=== PATIENT | female | born 1960 | race Caucasian/White ===

== ENCOUNTER 2018-09-10 14:51 | Inpatient (IN) | payer BC ==
[~2018-09-10] VITALS: Ht 162.6 cm; Wt 74.5 kg
[2018-09-10] MEDS ORDERED: IV NORMAL SALINE 1,000ML 1,000 ML IV SCH (15:13)
[2018-09-10] MEDS ORDERED: ONDANSETRON PF 4 MG/2 ML VIAL. IV PRN (15:15)
[2018-09-10] MEDS ORDERED: ACETAMINOPHEN 325 MG TABLET PO PRN (15:15)
[2018-09-10] MEDS ORDERED: KETOROLAC 30 MG/ML VIAL. IV PRN (15:15)
--- NOTE | 2018-09-10 15:17 | RAD ---
EXAM: CT HEAD WITHOUT CONTRAST. HISTORY: Facial droop, code stroke. TECHNIQUE: Computed tomography of the head was performed without intravenous contrast. COMPARISON: None. FINDINGS: There is no intracranial hemorrhage. Calix-white differentiation is preserved. The ventricles are normal in size and position. The visualized paranasal sinuses appear clear. The orbits are unremarkable. The temporal bones are unremarkable. The calvarium reveals no suspicious lesions. IMPRESSION: 1. No acute intracranial findings. These findings were called to Rosa by Calixto Mullins on 09/10/2018 at 3:08 PM. *One or more of the following individualized dose reduction techniques were utilized for this examination: 1. Automated exposure control. 2. Adjustment of the mA and/or kV according to patient size. 3. Use of iterative reconstruction technique. Electronically signed by: Kellie Mullins MD (09/10/2018 3:14 PM) [facility]
[2018-09-10 15:37] LABS: BASO # 0.1 x10^3/uL (0.0-0.2); BASO % 1 % (0-3); EOS # 0.1 x10^3/uL (0.0-0.7); EOS % 2 % (0-3); HEMATOCRIT 43.7 % (36.0-47.0); LYMPH % 32 % (24-48); MEAN CORPUSCULAR HEMOGLOBIN 33 pg (25-35); MEAN CORPUSCULAR HGB CONC 34 g/dL (31-37); MEAN CORPUSCULAR VOLUME 95 fL (79-100); MONO # 0.7 x10^3/uL (0.0-1.1); MONO % 11 % (0-9); NEUT # 3.4 x10^3uL (1.8-7.7); NEUT % 54 % (31-73); PLATELET COUNT 294 x10^3/uL (140-400); RED CELL DISTRIBUTION WIDTH 13.7 % (11.5-14.5); WHITE BLOOD COUNT 6.2 x10^3/uL (4.0-11.0)
[2018-09-10 15:50] LABS: ALBUMIN 3.4 g/dL (3.4-5.0); ALBUMIN/GLOBULIN RATIO 0.9 (1.0-1.7); CALCIUM 8.5 mg/dL (8.5-10.1); CREATININE 0.8 mg/dL (0.6-1.0); GFR 74.5; MAGNESIUM 2.1 mg/dL (1.8-2.4); POTASSIUM 3.4 mmol/L (3.5-5.1); TOTAL BILIRUBIN 0.3 mg/dL (0.2-1.0); TOTAL PROTEIN 7.2 g/dL (6.4-8.2)
[2018-09-10 16:15] VITALS: BP 133/67
--- NOTE | 2018-09-10 16:21 | NUR ---
Patient admitted direct to ICU 6. Per Dr Heredia office patient is a code stoke. Patient registered then taken directly to CT scan for code stroke. Patient then brought to ICU 6. Radiology did call with negative CT result. Pt is able to verbalize understanding of orientation to unit and poc. Pt states she was watching her son clean the pool on thu and felt weak and her legs gave out. She did fall, no LOC and did not hit head. She has felt weak since, so went to the doctor today. NO trouble swallowing, can move all extremities at this time. Dawood POTTS
[2018-09-10] MEDS ORDERED: IPRA3AMP29 NEB (16:24)
[2018-09-10] MEDS ORDERED: ALPR0.25 PO (16:24)
[2018-09-10] MEDS ORDERED: IBUP800T19 PO (16:25)
[2018-09-10] MEDS ORDERED: [UNRECOGNIZED DRUG - OTHER] IV ONE (16:42)
[2018-09-10] MEDS ORDERED: POTASSIUM CL IV ONE (16:42)
[2018-09-10] MEDS: POTASSIUM CL 40MEQ IN 0.9%NACL 1,000 ML IV SCH (16:50)
[2018-09-10 17:31] LABS: BACTERIA,URINE 0 /HPF (0-FEW); BILIRUBIN,URINE NEG (NEG); CLARITY,URINE CLEAR; COLOR,URINE YELLOW; GLUCOSE,URINE NEG (NEG); NITRITE,URINE NEG (NEG); RBC,URINE OCC /HPF (0-2); SQUAMOUS EPITHELIAL CELL,UR OCC /LPF; UROBILINOGEN,URINE 0.2 mg/dL (0.2 mg/dL); WBC,URINE 0 /HPF (0-4)
[2018-09-10] MEDS: ASPIRIN 81 MG TAB.CHEW PO SCH (18:48)
[2018-09-10] MEDS: POTASSIUM CHLORIDE 8 MEQ TABLET.ER. PO SCH (18:48)
[2018-09-10] MEDS: HYDROcodone/APAP 5/325MG 1 TAB TABLET PO PRN (18:48)
--- NOTE | 2018-09-10 19:03 | CONS ---
DATE OF CONSULTATION: NEUROLOGIC CONSULTATION REFERRING PHYSICIAN: Dr. Heredia. REASON FOR CONSULTATION: Weakness of the lower extremities. HISTORY OF PRESENT ILLNESS: This is a 57-year-old right-handed female who was admitted to ICU after she presented with 2-day history of progressive weakness of the lower extremities, more proximal than distal. According to the patient, she was working on her swimming pool and all of a sudden she felt very weak mainly in the lower extremity and she collapsed. She did not have any head injuries. Subsequently, the patient was very weak and she was able to crawl over and then able to get up. She stated her weakness has worsened today, but she did not report any falls. She also complains of numbness and paresthesia of the right upper extremity. She denies headaches, visual disturbances, nausea, vomiting, chest pain, shortness of breath or palpitation, dysarthria or dysphagia. She denies bowel or bladder dysfunctions. Initial nonenhanced head CT scan revealed no evidence of acute intracranial process, otherwise unremarkable. PAST MEDICAL HISTORY: Significant for seasonal allergies. Otherwise, unremarkable. PAST SURGICAL HISTORY: Positive for tonsillectomy, cholecystectomy, and tubal ligations. FAMILY HISTORY: Noncontributory. SOCIAL HISTORY: The patient is a smoker. She smokes half pack of cigarettes daily. She drinks alcohol occasionally. ALLERGIES: POSITIVE FOR SEASONAL ALLERGIES. HOSPITAL MEDICATIONS: Include heparin 5000 units q. 8 hours subacute, aspirin 81 mg daily, IV fluid with potassium chloride, Zofran 4 mg IV p.r.n. for nausea and Toradol 30 mg q. 6 hours p.r.n. for pain along with statin. PHYSICAL EXAMINATION: GENERAL: Well-developed, well-nourished female in no acute distress. She weighs 73.9 kilos. VITAL SIGNS: Blood pressure 133/67, respiratory rate 22, pulse is 82 and regular, temperature 98.1, oxygen saturation 99% on room air. HEENT: Normocephalic, atraumatic, otherwise unremarkable. NECK: Supple. Negative for carotid bruit, lymphadenopathy or thyromegaly. LUNGS: Clear to A and P. CARDIOVASCULAR: Regular rhythm, normal S1, S2. There is no S3, S4 or murmur. ABDOMEN: Soft. Bowel sounds positive. EXTREMITIES: Negative for cyanosis, clubbing or pitting edema. NEUROLOGIC: Mental status: The patient is alert and oriented x 3. Speech is fluent. There is no language dysfunction. Memory, judgment, and abstracting thinking are normal. The patient denies hallucination or delusion. CRANIAL NERVES: Visual blanco are full. The pupils are reactive to light and accommodation. The extraocular movements are intact. There is no nystagmus. There is no facial motor or sensory deficit. Hearing is intact bilaterally. The palate is elevated symmetrically. Sternocleidomastoid muscles are powerful bilaterally. The patient shrugs her shoulders symmetrically and protrudes her tongue in the midline without fasciculation or atrophy. MOTOR: No focal muscle bulk was seen. The tone is normal. The strength is 5/5 throughout. Sensory examination revealed normal pinprick, light touch, vibratory and position senses. Deep tendon reflexes were symmetric and active with absent Achilles responses bilaterally. Gait: The stance is steady. The patient walks a few steps without assistance. The coordination is normal. DIAGNOSTIC DATA: Initial nonenhanced head CT scan revealed no evidence of acute intracranial process, otherwise unremarkable. LABORATORY DATA: CBC revealed white blood cells of 6.2 thousand, hemoglobin 15, hematocrit 43.7, platelet count 294,000. Chemistry revealed sodium of 140, potassium 3.4, chloride 102, CO2 of 29, BUN 11, creatinine 0.8, glucose 92. Liver enzymes are normal. Troponin level is normal. IMPRESSION: A 2-day history of slowly progressive weakness of the lower extremities with normal current neurological examination rule out dehydration versus exertion. RECOMMENDATIONS: 1. We will obtain a CPK, creatine kinase, and continue with current management along with IV fluid. 2. Physical therapy as physical therapy evaluation. M Stevo DAVIS MD DR: ADDISON/ashely JOB#: [id number] / [id number]
[2018-09-10 19:59] VITALS: BP 105/65
[2018-09-10] MEDS: IPRATRPIUM/ALBUTEROL 0.5/2.5MG 3 ML NEBU. NEB PRN (21:06)
[2018-09-10] MEDS: ALPRAZolam 0.25 MG TABLET PO SCH (21:17)
[2018-09-10] MEDS: HEPARIN for SUB-Q USE 5,000 UNIT/ML VIAL. SQ SCH (21:18)
[2018-09-11] MEDS: POTASSIUM CL 40MEQ IN 0.9%NACL 1,000 ML IV SCH (02:01)
[2018-09-11] MEDS: HYDROcodone/APAP 5/325MG 1 TAB TABLET PO PRN ×4 (02:01→21:26)
[2018-09-11 05:27] VITALS: BP 125/69
[2018-09-11] MEDS: HEPARIN for SUB-Q USE 5,000 UNIT/ML VIAL. SQ SCH ×3 (05:50→21:23)
[2018-09-11 06:45] LABS: BASO # 0.1 x10^3/uL (0.0-0.2); BASO % 1 % (0-3); EOS # 0.2 x10^3/uL (0.0-0.7); EOS % 4 % (0-3); HEMATOCRIT 40.2 % (36.0-47.0); HEMOGLOBIN 13.4 g/dL (12.0-15.5); LYMPH # 2.7 x10^3/uL (1.0-4.8); LYMPH % 41 % (24-48); MEAN CORPUSCULAR HEMOGLOBIN 33 pg (25-35); MEAN CORPUSCULAR HGB CONC 33 g/dL (31-37); MEAN CORPUSCULAR VOLUME 97 fL (79-100); MONO # 0.6 x10^3/uL (0.0-1.1); MONO % 10 % (0-9); NEUT % 45 % (31-73); PLATELET COUNT 270 x10^3/uL (140-400); RED BLOOD COUNT 4.13 x10^6/uL (3.50-5.40); RED CELL DISTRIBUTION WIDTH 14.1 % (11.5-14.5); WHITE BLOOD COUNT 6.6 x10^3/uL (4.0-11.0)
[2018-09-11 06:54] LABS: CREATININE 0.7 mg/dL (0.6-1.0); GFR 86.9; POTASSIUM 3.7 mmol/L (3.5-5.1)
[2018-09-11 08:00] VITALS: BP 121/87
[2018-09-11] MEDS: POTASSIUM CHLORIDE 8 MEQ TABLET.ER. PO SCH (08:39)
[2018-09-11] MEDS: ALPRAZolam 0.25 MG TABLET PO SCH ×2 (08:39→21:09)
[2018-09-11] MEDS: ASPIRIN 81 MG TAB.CHEW PO SCH (08:39)
--- NOTE | 2018-09-11 10:23 | PN ---
DATE: 09/11/2018 SUBJECTIVE: The patient came in with generalized weakness, collapsing. Her weakness was progressive in the lower extremities, only was able to crawl. She said she feels a little better today, but she tends to have significant weakness, this way she describes it; however, her muscle tone, reflexes and strength seem to be appropriate for this at the present time. We will continue to monitor her on this. Get PT, OT to work with her. PHYSICAL EXAMINATION: VITAL SIGNS: Her blood pressure 125/70, respiratory rate 16, pulse anywhere from 60 to 70, good oxygen saturation. Continue to monitor the patient. Continue with PT, OT and make further assessment as indicated per those results. IMPRESSION: 1. Generalized weakness. 2. Syncope. 3. Change in mentation. PLAN: As above. NEFTALI KERN MD DR: ROBERTO/ashely JOB#: [id number] / [id number]
[2018-09-11 11:30] VITALS: BP 116/74
--- NOTE | 2018-09-11 13:26 | RAD ---
Carotid artery duplex Doppler ultrasound HISTORY: Transient ischemic attack, syncope, weakness. TECHNIQUE: Grayscale and duplex Doppler sonography were utilized. FINDINGS: Right carotid artery demonstrates no plaquing or stenosis by grayscale and duplex Doppler sonography. Normal carotid waveforms. Internal carotid artery peak systolic velocity 87 cm/s, end-diastolic velocity 46 cm/s, the slightly elevated end-diastolic velocity given absence of plaque is likely due to mild vascular tortuosity. ICA/CCA ratio 1.3. Right vertebral artery antegrade blood flow. Left carotid artery demonstrates no plaque or stenosis by grayscale and color Doppler sonography. Normal carotid waveforms. Internal carotid artery peak systolic velocity 100 cm/s, end-diastolic velocity 44 cm/s, the slightly elevated end-diastolic velocity given absence of plaque is likely due to mild vascular tortuosity. ICA/CCA ratio is 1.2. Left vertebral artery antegrade blood flow. IMPRESSION: No evidence of plaque or stenosis of the cervical carotid arteries. Bilateral vertebral artery antegrade blood flow is present. Electronically signed by: Dante Harvey MD (09/11/2018 1:23 PM) [facility]
[2018-09-11 16:46] VITALS: BP 105/56
[2018-09-11] MEDS: NICOTINE POLACRILEX GUM 2 MG GUM. BC PRN ×2 (17:25→22:35)
[2018-09-11 19:15] VITALS: BP 100/65
[2018-09-11] MEDS: IPRATRPIUM/ALBUTEROL 0.5/2.5MG 3 ML NEBU. NEB PRN (20:27)
[2018-09-11 22:56] VITALS: BP 111/75
[2018-09-12 05:26] VITALS: BP 105/68
[2018-09-12] MEDS: HEPARIN for SUB-Q USE 5,000 UNIT/ML VIAL. SQ SCH (06:16)
[2018-09-12] MEDS: ALPRAZolam 0.25 MG TABLET PO SCH (08:49)
[2018-09-12] MEDS: HYDROcodone/APAP 5/325MG 1 TAB TABLET PO PRN (08:49)
[2018-09-12] MEDS: ASPIRIN 81 MG TAB.CHEW PO SCH (08:49)
[2018-09-12] MEDS: POTASSIUM CHLORIDE 8 MEQ TABLET.ER. PO SCH (08:50)
[2018-09-12] MEDS ORDERED: TRAM50TA PO (09:48)
[2018-09-12] MEDS ORDERED: ALPR0.25 PO (09:48)
[2018-09-12] MEDS ORDERED: NICO2GUM42 BC (09:48)
[2018-09-12] MEDS ORDERED: POTA8TAB PO (09:48)
[2018-09-12] MEDS ORDERED: NICOTINE 21MG PATCH. TD SCH (11:00)
--- NOTE | 2018-09-12 11:40 | NUR ---
Patient D/C home with self care. Patients Tele monitor removed. Patient is given d/C teaching as well as prescriptions. Patient is escorted off unit by staff.
--- NOTE | 2018-09-12 11:55 | DS ---
DATE OF DISCHARGE: HOSPITAL COURSE: A 57-year-old female with generalized weakness, syncope, change in mental status and collapsing. Most of her weakness was in her legs and was progressive. She was unable to walk, but barely crawl. PT and OT worked with her. The patient's potassium was slightly on the low side. The rest of her labs looked pretty reasonable. In any case, the patient made good progress with PT-OT. She does have some mental status changes where she was slurring words, having difficulty pronouncing them. It was thought the patient was ruled out for TIA or possible stroke in evolution. CT scan was unremarkable, but she will probably need an MRI scan as an outpatient. The patient's potassium was corrected. She was seen by Neurology. So as an outpatient, we will probably get an MRI scan of the brain as well as recheck her potassium. IMPRESSION: Change in mental status, generalized weakness, hypokalemia, near syncope. The patient will continue to be monitored as an outpatient and make further evaluation on her. Also we are giving smoking patches, tramadol. See MRAD and heart healthy diet. NEFTALI KERN MD DR: ROBERTO/ashely JOB#: [id number] / [id number]
--- NOTE | 2018-09-12 13:40 | PN ---
DATE: 09/11/2018 SUBJECTIVE: The patient denies any new medical or neurological complaints. She continues to have mild weakness of the proximal lower extremities. She denies any falls, headaches, visual disturbances, nausea, vomiting, chest pain, shortness of breath or palpitation. OBJECTIVE: GENERAL: Well-developed, well-nourished female, not in acute distress. VITAL SIGNS: Blood pressure 105/68, respiratory rate 20, pulse is 70, temperature 97.9, oxygen saturation 95% on room air. HEENT: Normocephalic, atraumatic, otherwise unremarkable. NECK: Supple. Negative for carotid bruit, lymphadenopathy or thyromegaly. LUNGS: Clear to A and P. CARDIOVASCULAR: Regular rate and rhythm. Normal S1, S2. ABDOMEN: Soft. Bowel sounds positive. EXTREMITIES: Negative for cyanosis, clubbing or pitting edema. NEUROLOGICAL: Mental Status: The patient is alert and oriented x 3. Speech is fluent. There is no language dysfunction. Memory, judgment, and abstract thinking are normal. The patient denies hallucination or delusion. Cranial nerves are intact. No focal motor or sensory deficit. Deep tendon reflexes were symmetric and active without pathologic responses. Gait and coordination are normal. LABORATORY DATA: Creatine kinase is elevated at 398. Thyroid profile is normal. Lipid profile is normal. IMPRESSION: 1. A 2-day history of slowly progressive weakness of the proximal lower extremities with normal current neurological examination. 2. Mild hypokalemia, corrected. 3. Elevated creatine kinase, probably due to exertion and dehydration. RECOMMENDATIONS: Physical therapy evaluation and continue with current management. In case of discharge, the patient should follow up Neurology for further workup for possible near syncope versus cerebral ischemic event to rule out cerebral ischemic event. M Stevo DAVIS MD DR: ADDISON/ashely JOB#: [id number] / [id number]
--- NOTE | 2018-09-13 14:53 | EKG ---
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
== END 2018-09-12 11:40 | disposition home or self-care (01) | DRG 641 ==
LOC: CT 14:51 → ICU 14:54 → 1 SOUTH 09-11 11:20
PROVIDERS: ADMIT Family Medicine; ATTEND Family Medicine
DX: E87.6 Hypokalemia (principal); E86.0 Dehydration; F17.210 Nicotine dependence, cigarettes, uncomplicated; R55 Syncope and collapse; Z90.49 Acquired absence of other specified parts of digestive tract; Z98.51 Tubal ligation status; Z79.82 Long term (current) use of aspirin; Z79.899 Other long term (current) drug therapy
CPT/HCPCS: 36415; 70450; 80048; 80053; 80061; 81001; 82550; 83605; 83735; 83880; 84443; 84484; 85025; 85379; 87641; 93005; 93880; 94640; J1644; J1885; J7620

== ENCOUNTER → 2018-09-29 | Outpatient (CLI) | payer BC ==
[2018-09-12 05:26] VITALS: BP 105/68
[~2018-09-29] MED LIST: ALPR0.25 PO; IBUP800T19 PO; IPRA3AMP29 NEB; NICO2GUM42 BC; POTA8TAB PO; TRAM50TA PO
--- NOTE | 2018-09-30 10:31 | RAD ---
DATE: 09/29/2018 EXAM: DIGITAL SCREEN BILAT W/CAD HISTORY: Routine screening COMPARISON: Baseline study This study was interpreted with the benefit of Computerized Aided Detection (CAD). Breast Density: SCATTERED The breast parenchyma shows scattered fibroglandular densities. Breast parenchyma level B. FINDINGS: No suspicious breast densities or architectural distortion is seen. Scattered benign type calcifications are present. No suspicious microcalcifications are evident. IMPRESSION: There is no mammographic evidence of malignancy in either breast. BI-RADS CATEGORY: 2 BENIGN FINDING(S) RECOMMENDED FOLLOW-UP: 12M 12 MONTH FOLLOW-UP PQRS compliance statement: Patient information was entered into a reminder system with a target due date for the next mammogram. Mammography is a sensitive method for finding small breast cancers, but it does not detect them all and is not a substitute for careful clinical examination. A negative mammogram does not negate a clinically suspicious finding and should not result in delay in biopsying a clinically suspicious abnormality. "Our facility is accredited by the [employer] Mammography Program."
== END | disposition home or self-care (01) ==
LOC: MAMMO 11:15
PROVIDERS: ATTEND Family Medicine
DX: Z12.31 Encounter for screening mammogram for malignant neoplasm of breast (principal); N64.89 Other specified disorders of breast
CPT/HCPCS: 77067

== ENCOUNTER → 2018-12-08 | Outpatient (CLI) | payer BC ==
--- NOTE | 2018-12-08 17:20 | RAD ---
Transabdominal sonography of the pelvis Clinical indications: C[facility]. Right lower quadrant pain. FINDINGS: The uterus is anteverted in position. No uterine mass or fibroid is seen. The endometrial canal measures 2 mm in caliber which is normal. The longitudinal and AP and transverse dimensions of the uterus are 5.2 cm and 2.4 cm and 2.9 cm respectively. No free fluid is seen within the cul-de-sac. The right ovary is enlarged measuring 3.2 cm and 3.2 cm and 2.1 cm in size. This is due to a simple cyst measuring 22 mm in size. Color Doppler flow is seen within the right ovary. The left ovary is normal and measures 1.8 cm and 1.2 cm and 2.2 cm in size. Color Doppler flow is seen within the left ovary. No adnexal mass or free fluid is evident. IMPRESSION: 22 mm simple cyst of the right ovary. Electronically signed by: Santiago Molina MD (12/08/2018 5:17 PM) [facility]
== END | disposition home or self-care (01) ==
LOC: US 10:40
PROVIDERS: ATTEND Obstetrics & Gynecology
DX: N83.201 Unspecified ovarian cyst, right side (principal); R10.31 Right lower quadrant pain
CPT/HCPCS: 76856

== ENCOUNTER → 2019-11-29 | Outpatient (CLI) | payer BC ==
[~2019-11-29] MED LIST changes: +ALBU2.5V8 IH; +BUPR-192 PO; +DESV100T PO; +FLUT9.9S NS; +HYDR-2759 PO; +PREG50CA PO
== END ==
LOC: LAB 13:15
PROVIDERS: ATTEND Registered Nurse
DX: Z20.828 Contact with and (suspected) exposure to other viral communicable diseases (principal)
CPT/HCPCS: U0003-CS

== ENCOUNTER → 2019-12-02 | Outpatient (CLI) | payer BC ==
--- NOTE | 2019-12-05 10:30 | RAD ---
DATE: 12/02/2019 10:00 AM EXAM: MAMMO LAURITA SCREENING BILATERAL HISTORY: Screening COMPARISON: 09/29/2018 Bilateral CC and MLO views of the breasts were performed. Bilateral breast tomosynthesis was performed in CC and MLO projections. This study was interpreted with the benefit of Computerized Aided Detection (CAD). FINDINGS: Breast Density: SCATTERED The breast parenchyma shows scattered fibroglandular densities. Breast parenchyma level B No suspicious masses, microcalcifications or architectural distortion is present to suggest malignancy in either breast. The visualized axillae are unremarkable. IMPRESSION: No mammographic evidence of malignancy. BI-RADS CATEGORY: 1 NEGATIVE RECOMMENDED FOLLOW-UP: 12M 12 MONTH FOLLOW-UP Annual screening mammography is recommended, unless clinically indicated sooner based on symptoms or change in physical exam. PQRS compliance statement: Patient information was entered into a reminder system with a target due date for the next mammogram. Mammography is a sensitive method for finding small breast cancers, but it does not detect them all and is not a substitute for careful clinical examination. A negative mammogram does not negate a clinically suspicious finding and should not result in delay in biopsying a clinically suspicious abnormality. "Our facility is accredited by the [employer] Mammography Program."
== END | disposition home or self-care (01) ==
LOC: MAMMO 09:56
PROVIDERS: ATTEND Family Medicine
DX: Z12.31 Encounter for screening mammogram for malignant neoplasm of breast (principal)
CPT/HCPCS: 77063; 77067

== ENCOUNTER → 2019-12-02 | Day surgery (SDC) | payer BC ==
[~2019-12-02] MED LIST changes: +IPRATRPIUM/ALBUTEROL 0.5/2.5MG 3 ML NEBU. NEB PRN; +IV RINGERS SOLUTION,LACTATED 1,000 ML IV SCH; +MIDAZOLAM HCL PF 2 MG/2 ML VIAL. IV ONE; +ONDANSETRON PF 4 MG/2 ML VIAL. IV PRN; +PROPOFOL 10,000 MCG/ML (20ML) VIAL IV ONE
[2019-12-02 12:58] VITALS: BP 109/67
--- NOTE | 2019-12-06 15:07 | PATHOLOGY ---
[facility] Accession Number: [id number] . 01 Material submitted: . stomach - ANTRUM GASTRITIS . 01 Clinical history: . EGD . 02 Diagnosis: Gastric biopsies, antrum: - Chronic gastritis, mild. (JPM:prasanna; 12/06/2019) [facility] 12/06/2019 1026 Local . 02 Comment: Sections of the gastric antral biopsy show congestion and mild chronic inflammation. There are a few scattered admixed eosinophils within the base of the mucosa. A properly controlled immunoperoxidase stain for Helicobacter is negative for Helicobacter organisms. (JPM:prasanna; 12/06/2019) . Special stain: Immunoperoxidase stain for Helicobacter . 02 Electronically signed: . Robert Umana MD, Pathologist NPI- [id number] . 01 Gross description: . The specimen is received in formalin, labeled "Persaud, Crissy, antrum gastritis" and consists of 2 fragments of pink-cedeno tissue measuring 0.5 x 0.3 cm and 0.3 x 0.3 cm which are entirely submitted in A1. (SDY; 12/05/2019) [facility] 12/05/2019 1558 Local . 02 Pathologist provided ICD-10: K29.50 . 02 CPT . 349230, [id number] Specimen Comment: A courtesy copy of this report has been sent to [phone] Specimen Comment: [id number], Specimen Comment: Report sent to ,DR KING / DR KERN Performed at: [address], [place], [place] [id number] MD Dmitri Vyas MD Phone: [phone] Performed at: 02 [facility] [address] [place], [place] [id number] MD Robert Umana MD Phone: [phone]
== END | disposition home or self-care (01) ==
LOC: SURG 10:23
PROVIDERS: ATTEND Internal Medicine Gastroenterology
DX: R13.10 Dysphagia, unspecified (principal); K29.50 Unspecified chronic gastritis without bleeding; K22.8 Other specified diseases of esophagus; K44.9 Diaphragmatic hernia without obstruction or gangrene; K21.0 Gastro-esophageal reflux disease with esophagitis; K22.2 Esophageal obstruction; M19.90 Unspecified osteoarthritis, unspecified site; J45.909 Unspecified asthma, uncomplicated; F32.9 Major depressive disorder, single episode, unspecified; Z98.890 Other specified postprocedural states; Z79.899 Other long term (current) drug therapy; Z91.048 Other nonmedicinal substance allergy status
CPT/HCPCS: 43239; J2704

== ENCOUNTER → 2020-12-21 | Outpatient (CLI) | payer BC ==
[2019-12-02 12:58] VITALS: BP 109/67
[~2020-12-21] MED LIST changes: -BUPR-192 PO; +BUPR150T21 PO; -IPRATRPIUM/ALBUTEROL 0.5/2.5MG 3 ML NEBU. NEB PRN; -IV RINGERS SOLUTION,LACTATED 1,000 ML IV SCH; -MIDAZOLAM HCL PF 2 MG/2 ML VIAL. IV ONE; -ONDANSETRON PF 4 MG/2 ML VIAL. IV PRN; -PROPOFOL 10,000 MCG/ML (20ML) VIAL IV ONE
--- NOTE | 2020-12-21 14:59 | RAD ---
EXAM: Bilateral digital screening mammogram with tomosynthesis. HISTORY: 60-year-old female presents for screening mammography. TECHNIQUE: Full-field digital craniocaudal and mediolateral oblique 2D and 3D tomosynthesis images of both breasts are obtained for evaluation. Computer aided detection was applied. COMPARISON: 12/02/2019 BREAST PARENCHYMAL DENSITY: Level B - Scattered fibroglandular densities. FINDINGS: There is no new suspicious mass, microcalcification or region of architectural distortion. There is a small nodular density within the anterior 6:30 position of the right breast which is sligh tly more conspicuous compared to prior studies likely due to differences in technique. This is benign in appearance. There are additional areas of asymmetry and nodularity which are stable in appearance . IMPRESSION: BI-RADS Category 2: Benign finding(s). RECOMMENDATION: Annual mammography is recommended. If your mammogram demonstrates that you have dense breast tissue, which could hide abnormalities, and if you have other risk factors for breast cancer that have been identified, you might benefit from s upplemental screening tests that may be suggested by your ordering physician. Dense breast tissue, i n and of itself, is a relatively common condition. This information is not provided to cause undue c oncern, but rather to raise your awareness and to promote discussion with your physician regarding th e presence of other risk factors, in addition to dense breast tissue. A report of your mammography re sults will be sent to you and your physician. You should contact your physician if you have any ques tions or concerns regarding this report. Mammography is a sensitive method for finding small breast cancers, but it does not detect them all a nd is not a substitute for careful clinical examination. A negative mammogram does not negate a clin ically suspicious finding and should not result in delay in biopsying a clinically suspicious abnorma lity. PQRS compliance statement - Patient information was entered into a reminder system with a target due date for the next mammogram. "Our facility is accredited by the [employer] Mammography Program." Electronically signed by: Lida Catalan MD (12/21/2020 2:56 PM) [id number]
== END ==
LOC: MAMMO 13:16
PROVIDERS: ATTEND Family Medicine
DX: Z12.31 Encounter for screening mammogram for malignant neoplasm of breast (principal)
CPT/HCPCS: 77063; 77067

== ENCOUNTER → 2021-02-20 | Outpatient (CLI) | payer OTHER ==
[2019-12-02 12:58] VITALS: BP 109/67
[~2021-02-20] MED LIST changes: -POTA8TAB PO; +POTA8TAB57 PO
--- NOTE | 2021-02-20 12:04 | RAD ---
EXAM: Lumbar spine, 3 views; sacrum and coccyx, 2 views. HISTORY: Pain. COMPARISON: None. FINDINGS: 3 views of the lumbar spine and 2 views of the sacrum and coccyx are obtained. No lateral v iew of the coccyx is included on the [id number]. There is minimal dextrocurvature centered at L4. There is no significant listhesis. There is multilevel endplate remodeling. There is vacuum phenomeno n within the disc spaces at multiple levels. There is facet arthropathy primarily at the lower lumbar levels. There is mild degenerative subchondral sclerosis and spurring involving the sacroiliac joint s. There are cholecystectomy clips. IMPRESSION: 1. Multilevel degenerative change involving the lumbar spine, primarily the lower lumbar levels. 2. Osteoarthritis involving the sacroiliac joints. Electronically signed by: Lida Catalan MD (02/20/2021 12:01 PM) [id number]
--- NOTE | 2021-02-20 12:04 | RAD ---
EXAM: Lumbar spine, 3 views; sacrum and coccyx, 2 views. HISTORY: Pain. COMPARISON: None. FINDINGS: 3 views of the lumbar spine and 2 views of the sacrum and coccyx are obtained. No lateral v iew of the coccyx is included on the [id number]. There is minimal dextrocurvature centered at L4. There is no significant listhesis. There is multilevel endplate remodeling. There is vacuum phenomeno n within the disc spaces at multiple levels. There is facet arthropathy primarily at the lower lumbar levels. There is mild degenerative subchondral sclerosis and spurring involving the sacroiliac joint s. There are cholecystectomy clips. IMPRESSION: 1. Multilevel degenerative change involving the lumbar spine, primarily the lower lumbar levels. 2. Osteoarthritis involving the sacroiliac joints. Electronically signed by: Lida Catalan MD (02/20/2021 12:01 PM) [id number]
== END ==
LOC: RAD 11:28
PROVIDERS: ATTEND Family Medicine
DX: M47.816 Spondylosis without myelopathy or radiculopathy, lumbar region (principal); M53.3 Sacrococcygeal disorders, not elsewhere classified; R29.898 Other symptoms and signs involving the musculoskeletal system
CPT/HCPCS: 72100; 72220